=== PATIENT | female | born 1950 | race Caucasian/White ===

== ENCOUNTER → 2018-05-07 | Outpatient (CLI) | payer MEDICARE, BC ==
--- NOTE | 2018-05-11 19:07 | USB ---
History: Patient has history of breast cancer at age 49. Family history of breast cancer in mother at age 63 and breast cancer in maternal grandmother at age 65. Physical Findings: Nurse did not find any significant physical abnormalities on exam. US Breast BILAT Bilateral complete breast ultrasound includes all four quadrants, the retroareolar region and axilla. Finding demonstrates No cystic or solid lesion seen. Bilateral breast implants are seen. No suspicious sonographic findings. Surveillance MRI could be considered. Manage on a clinical basis. These results were verbally communicated with the patient and result sheet given to the patient on 05/07/18. ASSESSMENT: Negative, BI-RAD 1 RECOMMENDATION: Breast MRI of both breasts. Clinical management.
== END | disposition home or self-care (01) ==
LOC: RADUSWWP 14:58
PROVIDERS: ATTEND Family Medicine
DX: D05.92 Unspecified type of carcinoma in situ of left breast (principal); D05.91 Unspecified type of carcinoma in situ of right breast

== ENCOUNTER → 2018-08-28 | Outpatient (CLI) | payer MEDICARE, BC ==
--- NOTE | 2018-08-28 15:43 | BD ---
EXAMINATION TYPE: Axial Bone Density DATE OF EXAM: 08/28/2018 COMPARISON: NONE CLINICAL HISTORY: Height: 5 FT 5 IN Weight: 173 FRAX RISK QUESTIONS: Family History (Parent hip fracture): YES RISK FACTORS HISTORY OF: Active: YES Postmenopausal woman: SHIRA JALLOH AGE 50 Take estrogen and/or progesterone medications: TOOK FOR TWO YEARS MEDICATIONS: Additional Medications: METFORMIN, GLUCOPHAGE, LIPITOR Additional History: BREAST CANCER 2000 NO CHEMO NO RADIATION EXAM MEASUREMENTS: Bone mineral densitometry was performed using the [employer] System. Bone mineral density as measured about the Lumbar spine is: ----- L1-L4(G/cm2): 1.249 T Score Values are as follows: ----- L2: 0.6 ----- L3: 0.6 ----- L4: 1.0 ----- L1-L4: 0.6 Bone mineral density has: INCREASED 7.4 % since study of: 2010 Bone mineral density about the R hip (g/cm2): 1.103 Bone mineral density about the L hip (g/cm2): 1.081 T Score values are as follows: -----R Neck: 0.5 -----L Neck: 0.3 -----R Total: 0.8 -----L Total: 1.4 Bone mineral density has: INCREASED 0.8 % since study of: 2010 IMPRESSION: No evidence for osteoporosis or osteopenia. NOTE: T-SCORE=SD OF THE YOUNG ADULT MEAN.
== END ==
LOC: RADBDWWP 12:40
PROVIDERS: ATTEND Family Medicine
DX: M85.80 Other specified disorders of bone density and structure, unspecified site (principal)
CPT/HCPCS: 77080

== ENCOUNTER → 2019-03-11 | Outpatient (CLI) | payer MEDICARE, BC ==
--- NOTE | 2019-03-11 12:47 | MR ---
EXAMINATION TYPE: MR shoulder RT wo con DATE OF EXAM: 03/11/2019 11:56 AM COMPARISON: NONE HISTORY: Rt shoulder pain, injury 10-20-18 TECHNIQUE: Multiplanar multispin echo imaging of the right shoulder was performed. FINDINGS: Rotator cuff : Large retracted complete tear supraspinatus tendon with fluid filled gap of 2.4 cm. Te ndinosis of the remaining constituents of the rotator cuff. Bursa: No bursal effusion or thickening is seen. Musculature: There is no muscular tear, contusion, or atrophy. Acromioclavicular joint : Severe AC joint arthropathy with lateral downsloping of the acromion. [place] tion of the humeral head with the severe narrowing of the subacromial joint space. Osseous structures : There are no fractures or regions of abnormal bone marrow signal intensity. Long biceps tendon : The biceps tendon is normally situated within the bicipital groove. No complete or partial biceps tendon tear is present. Glenohumeral Joint fluid : Moderate joint effusion noted with internal debris seen. Cartilage and Bon e : No focal hyaline cartilage defects are noted. No Hill-Sachs, reverse Hill-Sachs, or bony Bankart lesions are seen. Labrum : There are no SLAP or soft tissue Bankart lesions. No paralabral cysts are seen. OTHER FINDINGS : none IMPRESSION: 1. Large retracted complete tear supraspinatus tendon with fluid filled gap of 2.4 cm. No distinct at rophy appreciated at this time. 2. Moderate joint effusion with internal debris noted. 3. AC joint arthropathy with subacromial spurring and subacromial impingement.
== END | disposition home or self-care (01) ==
LOC: RADMRIMAIN 11:11
PROVIDERS: ATTEND Orthopaedic Surgery
DX: M19.011 Primary osteoarthritis, right shoulder (principal); S46.011A Strain of muscle(s) and tendon(s) of the rotator cuff of right shoulder, initial encounter; M25.811 Other specified joint disorders, right shoulder

== ENCOUNTER → 2019-04-05 | Outpatient (CLI) | payer MEDICARE, BC ==
[2019-04-05 10:10] LABS: Basophils % (A) 1 %; Eosinophils # (A) 0.2 k/uL (0-0.7); Eosinophils % (A) 4 %; HGB 12.3 gm/dL (11.4-16.0); Lymphocytes # (A) 1.9 k/uL (1.0-4.8); Lymphocytes % (A) 34 %; MCH 29.8 pg (25.0-35.0); MCHC 32.4 g/dL (31.0-37.0); MCV 91.9 fL (80.0-100.0); Mean Platelet Volume 7.1; Monocytes # (A) 0.5 k/uL (0-1.0); Monocytes % (A) 8 %; Neutrophils # (A) 2.9 k/uL (1.3-7.7); Neutrophils % (A) 51 %; Platelet Count 359 k/uL (150-450); Potassium 4.3 mmol/L (3.5-5.1); RBC 4.13 m/uL (3.80-5.40); RDW 13.5 % (11.5-15.5); WBC 5.7 k/uL (3.8-10.6)
== END | disposition home or self-care (01) ==
LOC: LABPAT 09:35
PROVIDERS: ATTEND Orthopaedic Surgery
DX: Z01.818 Encounter for other preprocedural examination (principal); M75.41 Impingement syndrome of right shoulder
CPT/HCPCS: 36415; 80051; 85025; 93005

== ENCOUNTER 2019-04-19 10:53 | Day surgery (SDC) | payer MEDICARE, BC ==
--- NOTE | 2019-04-18 21:38 | HP ---
HISTORY AND PHYSICAL DATE OF SURGERY: 04/19/2019 Jen Gonsalez is a 68-year-old patient seen with progressive right shoulder pain. We discussed options for treatment. She elected to proceed with arthroscopy. Consent was obtained. PAST MEDICAL HISTORY: Lmr-chlncxq-skycmpvhr diabetes. PAST SURGICAL HISTORY: Hysterectomy, mastectomy, tonsillectomy. MEDICATIONS: Metformin, Restasis. ALLERGIES: AMPICILLIN. SOCIAL HISTORY: She denies tobacco use. PHYSICAL EXAMINATION: Evaluation right shoulder, flexion 80, abduction 70, external rotation 20 with pain and weakness. Tenderness along the anterior lateral acromion and rotator cuff insertion site. Impingement sign is positive at 90 degrees. Drop-arm sign is positive. Distal neurovascular exam is intact. Right shoulder radiographs revealed a type 3 anterior acromion, evidence for acromioclavicular arthritis and cystic changes of the greater tuberosity. An MRI of the right shoulder revealed a large retracted rotator cuff tendon tear as well as osteoarthritic changes about the acromioclavicular joint. IMPRESSION: 1. Right shoulder impingement with retracted rotator cuff tear. 2. Right shoulder acromioclavicular joint osteoarthritis. 3. Gyq-vsuddgl-buvffjxdt diabetes. PLAN: Right shoulder arthroscopy with subacromial decompression, arthroscopic rotator cuff repair, Shari biceps tenotomy and debridement. MMODL / IJN: [id number] /
[~2019-04-19 10:53] MED LIST: DEXAMETHASONE SOD PHOSPHATE 10 MG/ML 1 ML VIAL IV ONE; HYDROmorphone 0.5 MG/0.5 ML SYRINGE IVP PRN; LACTATED RINGERS 1,000 ML IV SCH; MIDAZOLAM 2 MG/2 ML VIAL IV PRN; ONDANSETRON 4 MG/2 ML VIAL IVP ONE
[2019-04-19 11:23] LABS: Glucose,Whole Blood 130 mg/dL (75-99)
[2019-04-19] MEDS ORDERED: LIDOCAINE 1% 20 ML VIAL (10MG/ML) FOR IV START INTRADERMA ONE (11:33)
[2019-04-19] MEDS ORDERED: fentaNYL (PF) 50 MCG/ML 2 ML AMP IV ONE (11:49)
[2019-04-19] MEDS ORDERED: fentaNYL (PF) 50 MCG/ML 2 ML AMP ONE (12:43)
[2019-04-19] MEDS ORDERED: ROPIVACAINE 5 MG/ML 30 ML VIAL ONE (12:43)
[2019-04-19] MEDS ORDERED: SUCCINYLCHOLINE CHLORIDE 100 MG/5 ML SYR IV ONE (12:43)
[2019-04-19] MEDS ORDERED: LIDOCAINE 1% INJ 10MG/ML (20 ML MDV) ONE (12:43)
[2019-04-19] MEDS ORDERED: DEXAMETHASONE SOD PHOSPHATE 4 MG/ML 1 ML VIAL ONE (12:43)
[2019-04-19] MEDS ORDERED: LIDOCAINE 2%-EPI 1:100,000 20 ML VIAL ONE (12:43)
[2019-04-19] MEDS ORDERED: PROPOFOL 10 MG/ML 20 ML VIAL IV ONE (12:43)
[2019-04-19] MEDS ORDERED: ROCURONIUM BROMIDE 10 MG/ML 10 ML VIAL IV ONE (12:43)
[2019-04-19] MEDS ORDERED: LACTATED RINGERS 1,000 ML IV ONE (13:29)
--- NOTE | 2019-04-19 14:50 | P.OP ---
Date of Procedure: 04/19/19 Preoperative Diagnosis: Right shoulder impingement Postoperative Diagnosis: 1. Right shoulder rotator cuff tear 2. Right shoulder impingement 3. Right shoulder acromioclavicular joint osteoarthritis Procedure(s) Performed: 1. Right shoulder arthroscopic rotator cuff repair 2. Right shoulder arthroscopic subacromial decompression 3. Right shoulder arthroscopic Shari procedure Implants: 15.5 Arthrex swivel lock anchor Anesthesia: GETA, regional (Interscalene block) Surgeon: Rey Ellis Cook'S Assistant #1: Be Arita Estimated Blood Loss (ml): 8 Pathology: none sent Condition: stable Disposition: PACU Indications for Procedure: 68-year-old patient seen with progressive right shoulder pain. After having treatment options discussed, she elected to proceed with arthroscopy Operative Findings: See description of procedure Description of Procedure: Patient underwent an interscalene block by department of anesthesia for postoperative pain management. The patient was then taken to the operative suite. The patient underwent a general anesthetic by the department of anesthesia. The patient was placed into a lateral position and secured. There was appropriate padding of the bony prominence. Right shoulder was then prepped and draped in normal sterile orthopedic fashion. We placed the extremity in 10 pounds of longitudinal traction. A posterior incision was now made for a posterior working portal site. The trocar and cannula were inserted into the glenohumeral joint. Arthroscopy was initiated. Spinal needle was now inserted anteriorly, to ascertain the anterior working portal site. An incision was now made in that area, a trocar was inserted followed by a probe. There was an obvious massive retracted rotator cuff tear I couldn't visualize from the glenohumeral joint. There were grade 2 chondromalacia changes of the glenoid fossa and grade 1/2 chondromalacia changes of the humeral head. The biceps tendon was absent. The labrum was frayed but stable with no tears. At this point instruments removed from glenohumeral joint. Utilizing the posterior working portal site, the trocar and cannula were inserted into the subacromial space. Arthroscopy initiated. I made an incision 2 fingerbreadths lateral to the acromion. I introduced my trocar followed by my ArthroCare ablator. I now began ablating thick subacromial bursal tissue, which exposed the undersurface of the anterior acromion. There was diminished subacromial space. There was a very prominent anterior acromion. A motorized bur was introduced and a subacromial decompression was performed. I also excised some osteophytes off the inferior aspect of the distal clavicle. The AC joint was visualized and noted to be fairly arthritic. The motorized bur was introduced in the anterior portal site and a Shari procedure was performed without difficulty, decompressing the AC joint nicely. I turned my attention to the rotator cuff. There was a massive retracted rotator cuff tendon tear. It measured approximately 4 cm and was retracted the on the glenoid. I could not mobilize it to the footprint area. I now began meticulously performing releases. Past was unable to approximated the footprint. I began repairing it in a kqtq-[id number] fashion with the posterior remnant which was more mobile than the anterior. I used a hdmq-bb-noqj sutures to approximate as best I could. I abraded the footprint with a motorized bur. I now passed 3 everted mattress sutures through good bites of rotator cuff tendon. I now made an babcock tester portal site off the lateral acromion. I now punched a hole in the footprint for repair. All 6 limbs of suture were passed through a 5.5 Arthrex swivel lock anchor. I introduced anchor eyelet into a pre-punch hole. Jovani HURST now tension all the sutures and then deployed the anchors with good purchase noted. All residual suture limbs were now clipped. We had some reasonable compression patella footprint was under a fair my attention. It was stable. I injected 1 mL Renyte intra-articular. Instruments now removed from the portal sites. All portal sites were approximated with nylon suture. Sterile dressings were applied followed by a shoulder immobilizer. Be HURST assisted in this complex case. The patient was awakened, transferred to a bed, and taken to recovery in stable condition.
[2019-04-19 14:54] VITALS: TEMP 97
[2019-04-19 15:00] LABS: Glucose,Whole Blood 150 mg/dL (75-99)
[2019-04-19 15:46] VITALS: RESP 18
[2019-04-19 18:16] VITALS: BP 113/70; PULSE 87
--- NOTE | 2019-04-19 19:02 | P.ANPRN ---
Procedure Note - Anesthesia - Nerve Block Performed Right Interscalene Single Time Out Performed: Yes Date of Procedure: 04/19/19 Location of Patient: PreOp Indication: Acute Post-Operative Pain, Dx/Pain Location, Requested by Surgeon Sedation Type: Sedate with meaningful contact maintained Preparation: Sterile Prep Position: Supine Catheter: None Needle Types: Pajunk Needle Gauge: 21 Ultrasound used to visualize needle placement: Yes Ultrasound used to observe medication spread: Yes Injectate: 0.5% Ropivacaine (see comment for volume) (20ML) Blood Aspirated: No Pain Paresthesia on Injection Noted: No Resistance on Injection: Normal Image Stored and Saved: Yes Events: Uneventful and Well Tolerated
== END 2019-04-19 18:10 | disposition home or self-care (01) ==
LOC: OR 10:53
PROVIDERS: ATTEND Orthopaedic Surgery
DX: M75.101 Unspecified rotator cuff tear or rupture of right shoulder, not specified as traumatic (principal); M75.41 Impingement syndrome of right shoulder; M19.011 Primary osteoarthritis, right shoulder; M94.211 Chondromalacia, right shoulder; I10 Essential (primary) hypertension; E11.9 Type 2 diabetes mellitus without complications; E78.5 Hyperlipidemia, unspecified; F41.9 Anxiety disorder, unspecified; Z90.710 Acquired absence of both cervix and uterus; Z90.89 Acquired absence of other organs; Z79.84 Long term (current) use of oral hypoglycemic drugs; Z79.899 Other long term (current) drug therapy; Z88.1 Allergy status to other antibiotic agents; Z90.13 Acquired absence of bilateral breasts and nipples
CPT/HCPCS: 29824; 29826; 29827; 64415; J2250; J1100; J0690; J2405; J3010; J1170; 76942

== ENCOUNTER → 2022-02-01 | Outpatient (CLI) | payer MEDICARE ==
--- NOTE | 2022-02-01 08:34 | USB ---
Patient History: Breast cancer, age 49. Maternal grandmother had breast cancer, age 65. Mother had breast cancer, age 63. Findings: The whole breast of both breasts and the axilla of both breasts were scanned. No solid or cystic masses are identified.. Bilateral breast prostheses are noted. There is some undulation of the right breast prosthesis. This was present previously. No significant interval change is evident. Overall Assessment: Benign, BI-RAD 2 Electronically signed and approved by: Kvng Bloom D.O. Radiologis
== END | disposition home or self-care (01) ==
LOC: RADUSWWP 07:45
PROVIDERS: ATTEND Family Medicine
DX: Z12.31 Encounter for screening mammogram for malignant neoplasm of breast (principal); Z90.13 Acquired absence of bilateral breasts and nipples; Z80.3 Family history of malignant neoplasm of breast

== ENCOUNTER 2022-10-16 07:01 | Day surgery (SDC) | payer MEDICARE, OTHER ==
[2022-10-14 10:54] VITALS: BMI 29.0
[~2022-10-16 07:01] MED LIST changes: +ATROPINE OPHTH SOLN 1% 5ML BTL OPHTHALMIC PRN; -DEXAMETHASONE SOD PHOSPHATE 10 MG/ML 1 ML VIAL IV ONE; -HYDROmorphone 0.5 MG/0.5 ML SYRINGE IVP PRN; -LACTATED RINGERS 1,000 ML IV SCH; -MIDAZOLAM 2 MG/2 ML VIAL IV PRN; -ONDANSETRON 4 MG/2 ML VIAL IVP ONE; +TETRACAINE 0.5% OPHTH (PF) DROPS 4 ML BTL OP PRN
[2022-10-16] MEDS ORDERED: LIDOCAINE 1% (10MG/ML) FOR IV START INTRADERMA PRN (07:19)
[2022-10-16] MEDS ORDERED: LACTATED RINGERS 1,000 ML IV SCH (07:19)
[2022-10-16] MEDS: CYCLOPENTOLATE 1% OPHTH SOLN 2 ML BTL OP PRN ×3 (07:20→07:37)
[2022-10-16] MEDS: PHENYLEPHRINE 2.5% OPHTH DRP 2ML OP PRN ×3 (07:27→07:40)
[2022-10-16 07:32] VITALS: TEMP 97.3
[2022-10-16 07:35] LABS: Glucose,Whole Blood 147 mg/dL (70-110)
[2022-10-16] MEDS ORDERED: MIDAZOLAM 2 MG/2 ML VIAL ONE (08:42)
[2022-10-16] MEDS ORDERED: EPINEPHrine (PF) 0.3 ML in BALANCED SALT IRRIG SOLN COMB2 500 ML IRRIGATION ONE (08:54)
[2022-10-16] MEDS ORDERED: BALANCED SALT IRRIG SOLN COMB2 15 ML IRRIG.SOLN INTRAOCULA ONE ×2 (08:55→09:00)
[2022-10-16] MEDS ORDERED: DUOVISC KIT (GREEN BOX) INTRAOCULA ONE ×2 (08:55→09:00)
[2022-10-16] MEDS ORDERED: LIDOCAINE 1% (PF) 10MG/ML VIAL MISCELLANE ONE ×2 (08:55→09:00)
[2022-10-16] MEDS: TIMOLOL 0.5% OPHTH DROPS 5 ML BTL OP PRN ×2 (08:56→09:00)
[2022-10-16] MEDS: MOXIFLOXACIN HCL 0.5% DROPS 3 ML BTL OP PRN ×2 (08:56→09:00)
--- NOTE | 2022-10-16 09:23 | P.OP ---
Date of Procedure: 10/16/22 Preoperative Diagnosis: 3+NS & 3+CS Postoperative Diagnosis: same Procedure(s) Performed: PIOL< OS Implants: BL1UT 21.50x 1.25 Anesthesia: MAC Surgeon: Delio Huber Pathology: none sent Condition: stable Disposition: same day Indications for Procedure: blurry vision Operative Findings: no complications
[2022-10-16 09:53] VITALS: BP 121/74; PULSE 63; RESP 18
--- NOTE | 2022-10-16 23:39 | OP ---
OPERATIVE REPORT DATE OF SERVICE : 10/16/2022 PROCEDURE PERFORMED: Phacoemulsification of cataract and intraocular lens implant to the left eye. PREOPERATIVE DIAGNOSES: 1. Nuclear sclerosis. 2. Cortical sclerosis. POSTOPERATIVE DIAGNOSES: 1. Nuclear sclerosis. 2. Cortical sclerosis. ANESTHESIA: Topical. ESTIMATED BLOOD LOSS: None. SPECIMEN TAKEN: None. NARRATIVE: After obtaining the appropriate consent, the patient was asked to sit upright, and the axes 0 and 180 degrees were identified and marked on the patient's cornea with a gentian marybeth marker after placement of tetracaine drop in the eye for a few moments. She was then brought to the operating room, where she was placed under cardiac monitoring and prepped and draped in the usual sterile manner. She was approached from her left temporal side, and using previously-acquired corneal topography information, the axis of 50 degrees was identified and marked with the [facility] hospital[facility] axis marker. A 5.5 mm Samir ring was placed on the patient's cornea over the Purkinje reflex. At the 5 o'clock position, an MVR blade was used to create a paracentesis port. Through this opening, 1% Xylocaine MPF 50:50 mix with balanced salt solution was injected into the anterior chamber. This was followed by stabilization of the anterior chamber with Amvisc. At the 3 o'clock position, a 2.7 mm amanda keratome was used to create a self- sealing corneal flap incision in a Langerman's fashion. Through this opening, a cystotome was introduced to begin a continuous tear capsulorrhexis which was completed using the Utrata forceps. Care was taken to ensure that the size of the rhexis was the size of the previously-placed 5.5 ring on the patient's cornea. Following the capsulorrhexis, hydrodissection and hydrodelineation of the lens were accomplished with balanced salt solution. Phacoemulsification of the lens utilizing phaco chop was accomplished in 17.11 seconds at 12% power. Additional Xylocaine MPF was instilled into the anterior chamber. This was followed by removal of the remaining cortical material under irrigation and aspiration as well as careful polishing of the posterior capsule in capsule vacuum mode. Additional Amvisc was used to stabilize the capsular bag, and using both [place] and Ole capsule polishing instruments, the entire 360- degree area under the anterior capsule was cleaned of the remaining cortical material. The temporal incision was enlarged slightly with a amanda keratome, and a Bausch and Lomb Trulign Toric model BL1UT 21.5 x 1.25 posterior chamber intraocular lens was inserted into the capsular bag without difficulty. The lens was rotated at least 360 degrees using a Sinskey hook. This was followed by removal of the remaining viscoelastic from in and around the intraocular lens and again assuring that there was no residual cortical material to restrict the lens rotation. The lens was then oriented at the 50-degree marvin previously placed on the patient's cornea, and the eye was brought to normal intraocular pressure through the paracentesis port. To ensure watertight integrity, Tisseel was used to close both corneal incisions. After sufficient amount of time to let Tisseel cure, the patient received 2 drops of 0.5% timolol followed by 2 drops of 0.5% moxifloxacin and 2 drops of 1% atropine. She was then lightly patched and shielded in the usual manner. There were no complications from the procedure. She tolerated the procedure well and was returned to outpatient recovery in good condition. MMODL / IJN: [id number] /
== END 2022-10-16 10:10 | disposition home or self-care (01) ==
LOC: OR 07:01
PROVIDERS: ATTEND Ophthalmology
DX: H25.12 Age-related nuclear cataract, left eye (principal); H25.012 Cortical age-related cataract, left eye; E11.36 Type 2 diabetes mellitus with diabetic cataract; I10 Essential (primary) hypertension; E78.5 Hyperlipidemia, unspecified; Z85.3 Personal history of malignant neoplasm of breast; Z87.891 Personal history of nicotine dependence; Z79.84 Long term (current) use of oral hypoglycemic drugs; Z79.52 Long term (current) use of systemic steroids; Z79.899 Other long term (current) drug therapy; Z88.0 Allergy status to penicillin; Z79.2 Long term (current) use of antibiotics
CPT/HCPCS: 66984; V2787; C1780; C1762; J2250; J0171; J2001

== ENCOUNTER 2022-11-13 06:49 | Day surgery (SDC) | payer MEDICARE, OTHER ==
[2022-11-08 11:46] VITALS: BMI 29.7
[~2022-11-13 06:49] MED LIST changes: -ATROPINE OPHTH SOLN 1% 5ML BTL OPHTHALMIC PRN; +LACTATED RINGERS 1,000 ML IV SCH; +LIDOCAINE 1% (10MG/ML) FOR IV START INTRADERMA PRN
[2022-11-13] MEDS: CYCLOPENTOLATE 1% OPHTH SOLN 2 ML BTL OP PRN ×3 (07:23→07:35)
[2022-11-13] MEDS: PHENYLEPHRINE 2.5% OPHTH DRP 2ML OP PRN ×3 (07:26→07:38)
[2022-11-13 07:35] LABS: Glucose,Whole Blood 136 mg/dL (70-110)
[2022-11-13 07:37] VITALS: TEMP 97.6
[2022-11-13] MEDS ORDERED: fentaNYL (PF) 50 MCG/ML 2 ML AMP ONE (08:17)
[2022-11-13] MEDS ORDERED: MIDAZOLAM 2 MG/2 ML VIAL ONE (08:17)
[2022-11-13] MEDS: TIMOLOL 0.5% OPHTH DROPS 5 ML BTL OP PRN ×2 (08:28→08:48)
[2022-11-13] MEDS ORDERED: BALANCED SALT IRRIG SOLN COMB2 15 ML IRRIG.SOLN INTRAOCULA ONE (08:28)
[2022-11-13] MEDS: MOXIFLOXACIN HCL 0.5% DROPS 3 ML BTL OP PRN ×2 (08:28→08:48)
[2022-11-13] MEDS: ATROPINE OPHTH SOLN 1% 5ML BTL OPHTHALMIC PRN ×2 (08:28→08:48)
[2022-11-13] MEDS ORDERED: LIDOCAINE 1% (PF) 10MG/ML VIAL SQ ONE (08:28)
[2022-11-13] MEDS ORDERED: HYALURONATE SODIUM INTRAOCULAR 1 EACH SYRINGE (12MG/ML) INTRAOCULA ONE (08:28)
[2022-11-13] MEDS ORDERED: EPINEPHrine (PF) 0.3 ML in BALANCED SALT IRRIG SOLN COMB2 500 ML IRRIGATION ONE (08:29)
--- NOTE | 2022-11-13 08:51 | P.OP ---
Date of Procedure: 11/13/22 Preoperative Diagnosis: NS Postoperative Diagnosis: same Procedure(s) Performed: PIIOL, OD Implants: AO1OU 21.50 Anesthesia: MAC Surgeon: Delio Huber Pathology: none sent Condition: stable Disposition: same day Indications for Procedure: blurry vision Operative Findings: no complications
[2022-11-13 09:17] VITALS: BP 105/66; PULSE 64; RESP 16
--- NOTE | 2022-11-13 13:58 | OP ---
OPERATIVE REPORT DATE OF SERVICE : 11/13/2022 PREOPERATIVE DIAGNOSIS: Nuclear sclerosis. POSTOPERATIVE DIAGNOSIS: Nuclear sclerosis. OPERATION: Phacoemulsification of cataract and intraocular lens implant of the right eye. NARRATIVE: After obtaining the appropriate consent, the patient was brought to the operating room. There the patient was placed under cardiac monitoring, prepped and draped in the usual sterile manner. The patient was approached from the right temporal side. The mm Samir ring inked in gentian marybeth was placed centrally on the cornea. At the 11 o'clock position, a 1.1 mm keratome was used to create a paracentesis port. Through this opening, 1% Xylocaine MPF 50/50 mix with balanced salt solution was injected into the anterior chamber. This was followed by stabilization of the anterior chamber with Amvisc viscoelastic. At the 9 o'clock position, a 2.75 mm amanda keratome was used to create a self-scaling corneal flap incision in a Langerman fashion. Through this opening, a cystotome was introduced to begin a continuous tear capsulorrhexis which was completed using the Utrata forceps. Care was taken to ensure that the capsulorrhexis was at least the size of the marvin on the anterior cornea. Hydrodissection and hydrodelineation of the lens were accomplished with balanced salt solution. Phacoemulsification of the lens utilizing phaco chop was accomplished in 10.64 seconds at 11% power. Addition Xylocaine MPF was instilled into the anterior chamber. This was followed by removal of the remaining cortex under irrigation and aspiration along with careful polishing of the posterior capsule in a capsule vacuum mode. Additional Amvisc viscoelastic was then used to stabilize the capsular bag, and the Bausch and Lomb Crystalens, model AO1UV, 21.5 diopters intraocular lens was injected into the capsular bag without difficulty. The lens was rotated 270 degrees so that the haptics resided at the 6 and 12 o'clock positions, and all remaining viscoelastic was then removed from within the capsular bag and around the anterior chamber. The eye was brought to normal intraocular pressure through the paracentesis port along with slight hydration of the incision sites. Watertight integrity was confirmed using a fluorescein strip. The patient then received 2 drops of 0.5% timolol followed by 2 drops of Vigamox and 2 drops of 1% atropine. The patient was then lightly patched and shielded in the usual manner. There were no complications from the procedure. The patient tolerated the procedure well and was returned to outpatient recovery in good condition. MMMICHELLE / TUTU: [id number] /
== END 2022-11-13 09:30 | disposition home or self-care (01) ==
LOC: OR 06:49
PROVIDERS: ATTEND Ophthalmology
DX: E11.36 Type 2 diabetes mellitus with diabetic cataract (principal); H25.11 Age-related nuclear cataract, right eye; H25.011 Cortical age-related cataract, right eye; H00.026 Hordeolum internum left eye, unspecified eyelid; H00.023 Hordeolum internum right eye, unspecified eyelid; H04.123 Dry eye syndrome of bilateral lacrimal glands; H02.89 Other specified disorders of eyelid; Z98.42 Cataract extraction status, left eye; Z96.1 Presence of intraocular lens; I10 Essential (primary) hypertension; Z85.3 Personal history of malignant neoplasm of breast; Z90.710 Acquired absence of both cervix and uterus; Z96.651 Presence of right artificial knee joint; Z90.10 Acquired absence of unspecified breast and nipple; Z79.84 Long term (current) use of oral hypoglycemic drugs; Z79.899 Other long term (current) drug therapy; Z88.0 Allergy status to penicillin
CPT/HCPCS: 66984; V2632; V2788; C1762; J2250; J0171; J3010; J2001

== ENCOUNTER → 2023-10-21 | Outpatient (CLI) | payer MEDICARE ==
--- NOTE | 2023-10-21 14:37 | USB ---
Reason for Exam: Hx of breast cancer, mastectomy. Patient History: Breast cancer, age 49. Maternal grandmother had breast cancer, age 65. Mother had breast cancer, age 63. Technique: Method: Whole Breast Handheld. Findings: The whole breast of both breasts, the axilla of both breasts and the retroareolar of both breasts were scanned. A complete US of all four quadrants of both breasts, axilla and retro-areolar regions were reviewed. Underlying bilateral breast implants. No solid or cystic lesion on either side. On the right, there is a nonenlarged lymph node measuring 1.8 x 1.3 x 0.6 cm. However, this demonstrates eccentric with thickened cortex measuring up to 4 mm thick. A reactive/post inflammatory etiology is favored but stability/resolution can be reassessed in 2 months. Overall Assessment: Probably benign, BI-RAD 3 Management: Diagnostic Breast Ultrasound of the right breast in 2 months. A clinical breast exam by your physician is recommended on an annual basis and results should be correlated with mammographic findings. This exam should not preclude additional follow-up of suspicious palpable abnormalities. Results were given to the patient verbally at the time of exam. Electronically signed and approved by: Tyler John M.D. Radiologist
--- NOTE | 2023-10-22 23:26 | BD ---
EXAMINATION TYPE: Axial Bone Density DATE OF EXAM: 10/21/2023 CLINICAL HISTORY: 73 years old Female. ICD-10 CODE: M85.89 OTH DISRD OF BONE DENSITY AND STRUCTURE Height: 65.2 in Weight: 151 lbs FRAX RISK QUESTIONS: Family History (Parent hip fracture): yes father History of Fracture in Adulthood: rt foot age 68 RISK FACTORS HISTORY OF: History of Wrist Fracture: rt wrist age 10 MEDICATIONS: Osteoporosis Medications:not now Which medication: Fosamax How Lon years EXAM MEASUREMENTS: Bone mineral densitometry was performed using the Dely System. Bone mineral density as measured about the Lumbar spine is: ----- L1-L4(G/cm2): 1.294 T Score Values are as follows: ----- L1: 0.2 ----- L2: 0.7 ----- L3: 0.9 ----- L4: 1.7 ----- L1-L4: 1.0 Z Score Values are as follows: ----- L1: 1.7 ----- L2: 2.3 ----- L3: 2.5 ----- L4: 3.2 ----- L1-L4: 2.5 Bone mineral density has: Increased 3.6% since study of: 08/28/2018 Bone mineral density about the R hip (g/cm2): 1.075 Bone mineral density about the L hip (g/cm2): 1.132 T Score values are as follows: -----R Neck: 0.2 -----L Neck: 0.2 -----R Total: 0.5 -----L Total: 1.0 Z Score values are as follows: -----R Neck: 1.9 -----L Neck: 1.9 -----R Total: 2.0 -----L Total: 2.4 Bone mineral density has: Decreased -3.9% since study of: 08/28/2018 FRAX%s: The graph provided illustrates a 10.3% chance for a major osteoporotic fx and a 0.8% chance f or the hips probability for fx in 10 years time. IMPRESSION: Normal (Values between +1 and -1 indicate normal bone mass). Consider repeating this study in 5 year s or sooner if there is some new clinical indication. NOTE: T-SCORE=SD OF THE YOUNG ADULT MEAN.
== END | disposition home or self-care (01) ==
LOC: RADUSWWP 13:49
PROVIDERS: ATTEND Family Medicine
DX: Z12.31 Encounter for screening mammogram for malignant neoplasm of breast (principal); Z80.3 Family history of malignant neoplasm of breast
CPT/HCPCS: 77080

== ENCOUNTER → 2023-12-24 | Day surgery (SDC) | payer MEDICARE ==
--- NOTE | 2023-12-24 11:48 | USB ---
Findings: Technique utilized:US discontinued breast core RT Image; Ultrasound imaging of: Area of concern, retroareolar region and axilla. Two arrt technologist and the radiologist evaluated the right axillary lymph node. It is determined that the lymph node has a lobular contour with area of thickening on prior felt to be due to silo man technique with a flat appearing in other measuring planes with somewhat undulating contour to the lymph node. There our also large vessels near the lymph node in the axilla making the procedure technically difficult and risky. It was determined at that time it was safer for a ultrasound in 3 month to ensure stability. No suspicious lymph nodes or masses. Management: Diagnostic Breast Ultrasound of the right breast in 3 months. A clinical breast exam by your physician is recommended on an annual basis and results should be correlated with mammographic findings. This exam should not preclude additional follow-up of suspicious palpable abnormalities. Results were given to the patient verbally at the time of exam. Electronically signed and approved by: Barrie Bautista DO
== END ==
LOC: RADUSWWP 09:57
PROVIDERS: ATTEND Surgery
DX: R92.8 Other abnormal and inconclusive findings on diagnostic imaging of breast (principal)